=== PATIENT | female | born 1970 | race American Indian/Alaskan Native ===

== ENCOUNTER 2022-01-11 03:27 | Emergency (ER) | payer MEDICAID ==
[~2022-01-11] VITALS: Ht 160 cm; Wt 68.2 kg
[2022-01-11 03:34] VITALS: BP 113/64
[2022-01-11] MEDS ORDERED: ACETAMINOPHEN 325 MG TABLET PO ONE (03:45)
[2022-01-11] MEDS ORDERED: IBUPROFEN 600 MG TABLET PO ONE (03:45)
== END 2022-01-11 05:18 | disposition home or self-care (01) ==
LOC: EMS 03:28
DX: M77.12 Lateral epicondylitis, left elbow (principal); F12.90 Cannabis use, unspecified, uncomplicated
CPT/HCPCS: 99283

== ENCOUNTER 2024-12-06 00:44 | Inpatient (IN) | payer MEDICAID, OTHER ==
[~2024-12-06] VITALS: Ht 160 cm; Wt 56.8 kg
[2024-12-06 01:43] LABS: PLATELET COUNT (AUTO) 334 K/uL (150-450); RED BLOOD CELL COUNT(AUTO) 4.94 MIL/uL (4.00-5.20); RED CELL DISTRIBUTION WIDTH 12.7 % (11.5-14.5); WHITE BLOOD COUNT (AUTO) 9.0 K/uL (4.5-11.0)
[2024-12-06 01:57] LABS: ALCOHOL, BLOOD (SERUM) < 3 mg/dL (0-10)
[2024-12-06 02:16] LABS: CALCIUM, TOTAL 9.0 mg/dL (8.8-10.5); CREATININE 0.72 mg/dL (0.60-1.30); GLOMERULAR FILTR. RATE CALC > 60 mL/min (>60); GLUCOSE,RANDOM 102 mg/dL (70-110); SODIUM SERUM 136 mmol/L (136-145); UREA NITROGEN, BLOOD 11 mg/dL (7-18)
[2024-12-06 02:21] LABS: ASPARTATE AMINOTRANSFERASE 21 U/L (15-37); TOTAL PROTEIN, SERUM 7.2 g/dL (6.4-8.2)
[2024-12-06] MEDS ORDERED: ONDANSETRON HCL 4 MG/2 ML VIAL IVP PRN (05:30)
[2024-12-06] MEDS ORDERED: ACETAMINOPHEN 325 MG TABLET PO PRN (05:30)
[2024-12-06] MEDS: SODIUM CHLORIDE 0.9% 1,000 ML IV ONE (05:56)
[2024-12-06] MEDS: HEPARIN SODIUM,PORCINE 5,000 UNITS/ML VIAL SQ SCH (08:00)
[2024-12-06] MEDS: FAMOTIDINE 20 MG TABLET PO SCH (09:00)
[2024-12-06 09:36] VITALS: BP 144/85; PULSE 64; RESP 18; TEMP 98.1; O2SAT 100
[2024-12-06 10:58] LABS: APPEARANCE,URINE CLEAR (CLEAR); GLUCOSE, URINE (UA) NEGATIVE (NEGATIVE); LEUKOCYTE ESTERASE ,URINE NEGATIVE (NEGATIVE); NITRATE,URINE POSITIVE (NEGATIVE); OCCULT BLOOD,URINE NEGATIVE (NEGATIVE); SPECIFIC GRAVITIY, URINE 1.014 (1.003-1.030)
[2024-12-06 11:00] LABS: PH,URINE DRUG SCREEN 6.5 (5.0-8.0)
[2024-12-06 11:04] LABS: ALCOHOL, URINE DRUG SCREEN NEGATIVE (NEGATIVE); AMPHET/METH SCREEN,URINE POSITIVE (NEGATIVE); BARBITURATE SCREEN, URINE NEGATIVE (NEGATIVE); CANNABINOID SCREEN,URINE POSITIVE (NEGATIVE); COCAINE SCREEN,URINE NEGATIVE (NEGATIVE); METHADONE SCREEN, URINE NEGATIVE (NEGATIVE)
[2024-12-06 11:10] LABS: SQUAMOUS EPITHELIAL CELL,UR Few /LPF (None Seen)
[2024-12-06 20:34] VITALS: BP 150/86; PULSE 56; RESP 18; TEMP 98.1; O2SAT 100
[2024-12-06] MEDS: ZOLPIDEM TARTRATE 5 MG TABLET PO PRN (23:26)
[2024-12-07 04:28] VITALS: BP 138/91; PULSE 56; RESP 18; TEMP 98.1; O2SAT 100
[2024-12-07 08:00] VITALS: BP 145/85; PULSE 54; RESP 19; TEMP 97.5; O2SAT 100
[2024-12-07 22:43] VITALS: BP 122/81; PULSE 68; RESP 18; TEMP 98; O2SAT 100
[2024-12-08 03:29] VITALS: BP 130/87; PULSE 75; RESP 18; TEMP 98; O2SAT 100
[2024-12-08 08:29] VITALS: BP 147/86; PULSE 58; RESP 18; TEMP 98.6; O2SAT 100
[2024-12-08] MEDS: CefTRIAXone 1 GM/DEXTROSE 50 ML IV SCH (12:04)
[2024-12-08] MEDS ORDERED: CIPR250T6 PO (12:19)
[2024-12-08] MEDS ORDERED: FAMO20 PO (12:19)
[2024-12-08] MEDS ORDERED: ACET-2247 PO (12:21)
[2024-12-08] MEDS ORDERED: CIPROFLOXACIN HCL 250 MG TABLET PO SCH (21:00)
== END 2024-12-08 20:55 | DRG 690 ==
LOC: EMS 00:46 → EDH 05:25 → 6S 07:01
PROVIDERS: ADMIT Internal Medicine; ATTEND Internal Medicine
DX: N39.0 Urinary tract infection, site not specified (principal); F15.23 Other stimulant dependence with withdrawal; F11.13 Opioid abuse with withdrawal; F19.10 Other psychoactive substance abuse, uncomplicated
CPT/HCPCS: 80048; 80076; 80307; 81001; 85025; 87077; 87086; 87186; 96360; 99285; G0480; J0696; J1644; 36415-L1; 36415-TC